=== PATIENT | female | born 1965 | race Two or more races ===

== ENCOUNTER → 2017-05-30 | Outpatient (REF) | payer MEDICAID | LOC: M SFHCPLAZ 15:33 | PROVIDERS: ATTEND Family Medicine | DX: M25.50 Pain in unspecified joint (principal); F41.9 Anxiety disorder, unspecified; R03.0 Elevated blood-pressure reading, without diagnosis of hypertension ==

== ENCOUNTER → 2025-10-04 | Outpatient (CLI) | payer OTHER | LOC: M PLAIMG 10:19 | PROVIDERS: ATTEND Registered Nurse | DX: I50.9 Heart failure, unspecified (principal); I34.0 Nonrheumatic mitral (valve) insufficiency; I36.1 Nonrheumatic tricuspid (valve) insufficiency; I31.39 Other pericardial effusion (noninflammatory) ==